=== PATIENT | male | born 1990 | race Caucasian/White ===

== ENCOUNTER 2017-03-21 19:07 | Emergency (ER) | payer SELFPAY ==
[2017-03-21 19:21] VITALS: BP 122/77; PULSE 86; TEMP 98; BMI 29.0
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
[2017-03-21] MEDS ORDERED: IBUPROFEN 600 MG TABLET (FP) PO ONE ×2 (20:09→20:20)
[2017-03-21] MEDS ORDERED: CEPHALEXIN MONOHYDRATE 500 MG CAPSULE (UD) PO ONE (21:21)
[2017-03-21] MEDS ORDERED: BACITRACIN 15 GM TUBE TOPICAL OINTMENT TP ONE (21:21)
[2017-03-21] MEDS ORDERED: METHOCARBAMOL 500 MG TABLET PO ONE (21:21)
[2017-03-21] MEDS ORDERED: METHOCARBAMOL 500 MG TABLET ONE (21:35)
[2017-03-21] MEDS ORDERED: CEPHALEXIN MONOHYDRATE 250 MG CAPSULE (FP) ONE (21:36)
== END 2017-03-21 21:45 | disposition home or self-care (01) ==
LOC: JER 19:07
DX: S70.01XA Contusion of right hip, initial encounter (principal); S40.211A Abrasion of right shoulder, initial encounter; S50.311A Abrasion of right elbow, initial encounter; S30.811A Abrasion of abdominal wall, initial encounter; V00.131A Fall from skateboard, initial encounter; Y92.410 Unspecified street and highway as the place of occurrence of the external cause; Y93.51 Activity, roller skating (inline) and skateboarding; Y99.8 Other external cause status
CPT/HCPCS: 70450-TC; 73523-TC; 99281-25